=== PATIENT | male | born 1975 | race Caucasian/White ===

== ENCOUNTER 2018-01-03 22:11 | Emergency (ER) | payer BC ==
[~2018-01-03] VITALS: Ht 175.3 cm; Wt 83.9 kg
[2018-01-03 22:25] VITALS: BP 153/102
[2018-01-03] MEDS ORDERED: AUGMENTIN 875-1 EAC1 ORAL (22:29)
[2018-01-03] MEDS ORDERED: Tetanus/Diptheria/Pertussis Vaccine 0.5ml Syr IM ONE (22:30)
[2018-01-03] MEDS ORDERED: Augmentin 875mg Tab ORAL ONE (22:30)
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
[2018-01-03 22:47] VITALS: BP 153/102
== END 2018-01-03 22:47 | disposition home or self-care (01) ==
LOC: EMR 22:35
DX: S51.832A Puncture wound without foreign body of left forearm, initial encounter (principal); Y04.1XXA Assault by human bite, initial encounter; Y92.9 Unspecified place or not applicable
CPT/HCPCS: 90471; 90715; 99283